=== PATIENT | male | born 1945 | race Caucasian/White ===

== ENCOUNTER → 2021-06-30 | Outpatient (CLI) | payer MEDICARE, OTHER ==
[2020-05-15 15:05] VITALS: BP 144/90
[~2021-06-30] MED LIST: ASPI-630 PO; CARV25TA2 PO; EPLE50TA3 PO; EZET10TA20 PO; FINA5TAB4 PO; FURO80TA3 PO; NITR0.4T22 SL; PANT20TA2 PO; POTA-116 PO; PRAV20TA2 PO; PRED20TA PO; SERT50TA PO
--- NOTE | 2021-06-30 15:08 | RAD ---
CT scan of the chest without contrast 06/30/2021 CLINICAL HISTORY: Shortness of breath, COPD, lymphoma. TECHNIQUE: Unenhanced, contiguous, 5 mm axial sections were obtained through the chest and upper abdo men. One or more of the following individualized dose reduction techniques were utilized for this study: 1. Automated exposure control. 2. Adjustment of the mA and/or kV according to patient size. 3. Use of iterative reconstruction technique. FINDINGS: Comparison is made to a portable chest radiograph dated 05/11/2020. The patient is post CABG procedure. A left-sided pacemaker/defibrillator is unchanged in position. Th e cardiac silhouette is mildly enlarged. Atherosclerotic calcification of the thoracic aorta and its branches is noted. Extensive coronary artery calcifications are seen. The thoracic aorta is tortuous but tapers normally. No axillary lymphadenopathy is seen. Enlarged right hilar and mediastinal lymph nodes are seen which measure 1 to 2 centimeters in size. Mild to moderate bullous emphysematous changes are seen involving both upper lobes. There is a small right pleural effusion. No pneumothorax is seen. Left lower lobe dependent atelectasis and/or infiltr ate is noted. A rounded masslike opacity is seen involving the posterior medial aspect of the right lower lobe whic h measures 3.7 x 3.7 x 3.6 cm in transverse, craniocaudal and AP dimensions. 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 Images through the upper abdomen demonstrate atherosclerotic calcification of the abdominal aorta. Ca lcified granulomas are seen involving the spleen. A 4.8 cm rounded low-attenuation lesion is seen inv olving the superior pole of the left kidney. This likely represents a cyst. Very mild S-shaped curvat ure of the thoracolumbar spine is seen. Degenerative changes are seen involving the thoracic spine. 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 Electronically signed by: Stanislav Bach MD (06/30/2021 3:06 PM) [id number]
== END ==
LOC: CT 09:39
PROVIDERS: ATTEND Internal Medicine Pulmonary Disease
DX: C85.90 Non-Hodgkin lymphoma, unspecified, unspecified site (principal); R91.8 Other nonspecific abnormal finding of lung field; I25.10 Atherosclerotic heart disease of native coronary artery without angina pectoris; I70.0 Atherosclerosis of aorta; R59.0 Localized enlarged lymph nodes; J43.9 Emphysema, unspecified; N28.89 Other specified disorders of kidney and ureter; J90 Pleural effusion, not elsewhere classified; M47.814 Spondylosis without myelopathy or radiculopathy, thoracic region; M43.8X5 Other specified deforming dorsopathies, thoracolumbar region; Z95.0 Presence of cardiac pacemaker; Z95.1 Presence of aortocoronary bypass graft
CPT/HCPCS: 71250